=== PATIENT | female | born 1990 | race Caucasian/White ===

== ENCOUNTER 2025-07-24 08:51 | Emergency (ER) | payer OTHER ==
[~2025-07-24] VITALS: Ht 160 cm; Wt 67.3 kg
[2025-07-24 09:20] VITALS: BP 105/72; PULSE 63; RESP 20; TEMP 98.1; O2SAT 99
== END 2025-07-24 11:20 | disposition still patient (30) ==
LOC: EMS 08:54
DX: M79.661 Pain in right lower leg (principal); M79.662 Pain in left lower leg; Z53.21 Procedure and treatment not carried out due to patient leaving prior to being seen by health care provider
CPT/HCPCS: 93005